=== PATIENT | male | born 1935 | race Hispanic/Latino ===

== ENCOUNTER 2017-06-15 22:46 | Observation (INO) | payer MEDICARE ==
--- NOTE | 2017-06-15 23:00 | ED PDOC ---
Arrival/HPI - General Time Seen by Provider: 06/15/17 22:50 Historian: Patient, Family - History of Present Illness Narrative History of Present Illness (Text): 06/15/17 23:00 Marciano Tellez is an 81 year old male, whose past medical history includes seasonal allergies, who presents to the emergency department for shortness of breath and cough. Patient states he has been experiencing intermittent cough and nasal congestion since allergy season began 3 weeks ago. Patient states he was seen by his PMD and prescribed Cingulair, Flonase, and Xyzal, which he has been taking with no significant improvement. Patient states tonight his cough and nasal congestion worsened, with associated shortness of breath and wheezing. Patient received nebulizer treatments and Solu-medrol en route with improvement. Patient notes he was working outside all day and wore a face mask. Patient denies any fever, chills, chest pain, abdominal pain, nausea, vomiting, diarrhea, urinary symptoms, back pain, neck pain, headache, dizziness, or any other complaints. Symptom Onset: Gradual Symptom Course: Unchanged Activities at Onset: Light Context: Home Past Medical History - Provider Review Nursing Documentation Reviewed: Yes - Psychiatric Hx Depression: No Hx Emotional Abuse: No Hx Physical Abuse: No Hx Substance Use: No - Suicidal Assessment Feels Threatened In Home Enviroment: No Family/Social History - Physician Review Nursing Documentation Reviewed: Yes Family/Social History: Unknown Family HX Hx Alcohol Use: No Hx Substance Use: No Hx Substance Use Treatment: No Allergies/Home Meds Allergies/Adverse Reactions: Allergies No Known Allergies Allergy (Verified 06/15/17 22:54) Home Medications: Home Meds Medication Instructions Recorded Confirmed Doxazosin Mesylate [Cardura] 2 mg PO DAILY 08/26/11 08/26/11 Rosuvastatin Calcium [Crestor] 10 mg PO DAILY 08/26/11 06/15/17 Latanoprost 0.005% Opht [Xalatan 1 drop OU DAILY 06/15/17 06/15/17 Opht] Nebivolol [Bystolic] 5 mg PO DAILY 06/15/17 06/15/17 Valsartan/Hydrochlorothiazide 1 tab PO DAILY 06/15/17 06/15/17 [Valsartan-Hctz 320-12.5 mg Tab] Review of Systems - Physician Review All systems were reviewed & negative as marked: Yes - Review of Systems Constitutional: Normal. absent: Fevers Eyes: Normal ENT: Sinus Congestion Respiratory: SOB, Cough, Wheezing Cardiovascular: Normal. absent: Chest Pain Gastrointestinal: Normal. absent: Abdominal Pain, Diarrhea, Nausea, Vomiting Genitourinary Male: Normal. absent: Dysuria, Frequency, Hematuria, Urinary Output Changes Musculoskeletal: Normal. absent: Back Pain, Neck Pain Skin: Normal. absent: Rash Neurological: Normal. absent: Headache, Dizziness Endocrine: Normal Hemo/Lymphatic: Normal Psychiatric: Normal Physical Exam Vital Signs Reviewed: Yes Vital Signs Temp Pulse Resp BP Pulse Ox 06/15/17 23:49 102 H 18 150/56 L 92 L 06/15/17 22:55 98.0 F 92 H 18 176/76 H 95 Temperature: Afebrile Blood Pressure: Hypertensive Pulse: Regular Respiratory Rate: Normal Appearance: Positive for: Well-Appearing, Non-Toxic, Comfortable Pain Distress: None Mental Status: Positive for: Alert and Oriented X 3 - Systems Exam Head: Present: Atraumatic, Normocephalic Pupils: Present: PERRL Extroacular Muscles: Present: EOMI Conjunctiva: Present: Normal Mouth: Present: Moist Mucous Membranes Neck: Present: Normal Range of Motion Respiratory/Chest: Present: Wheezes. No: Respiratory Distress, Accessory Muscle Use Cardiovascular: Present: Regular Rate and Rhythm, Normal S1, S2. No: Murmurs Abdomen: No: Tenderness, Distention, Peritoneal Signs Back: Present: Normal Inspection Upper Extremity: Present: Normal Inspection. No: Cyanosis, Edema Lower Extremity: Present: Normal Inspection. No: Edema Neurological: Present: GCS=15, CN II-XII Intact, Speech Normal Skin: Present: Warm, Dry, Normal Color. No: Rashes Psychiatric: Present: Alert, Oriented x 3, Normal Insight, Normal Concentration Medical Decision Making ED Course and Treatment: 06/15/17 23:00 Impression: 81 year old male complaining of cough, nasal congestion, shortness of breath, and wheezing. Differential Diagnosis included but are not limited to: asthmatic bronchitis Plan: -- EKG -- Chest X-Ray -- Labs, VBG, BNP, cardiac enzymes, blood cultures -- Duoneb -- Reassess and disposition Progress Notes: Reviewed EKG, NSR at [address] bpm[address] Non-specific ST/T wave changes. 06/16/17 00:05 Chest X-Ray reviewed, shows no acute processes. 06/16/17 00:[address] Santo, who is aware and agrees with plan. Accepts pt in to his service. Pt will go to Telemetry observation for asthmatic bronchitis. Requests Dr. James on consult. - Lab Interpretations Lab Results: 06/15/17 23:20 06/15/17 23:20 Lab Results 06/15/17 23:20: Sodium 147, Potassium 3.7, Chloride 106, Carbon Dioxide 29, Anion Gap 16, BUN 29 H, Creatinine 1.2, Est GFR ( Amer) > 60, Est GFR ( Non-Af Amer) 58, Random Glucose 131 H, Calcium 9.2, Magnesium 1.8, Total Bilirubin 0.6, AST 42, ALT 32, Alkaline Phosphatase 84, Lactate Dehydrogenase 614, Total Creatine Kinase 371 H, CK-MB (CK-2) 7.3 H, CK-MB (CK-2) % 2.0 L, Troponin I < 0.01, NT-Pro-B Natriuret Pep 164, Total Protein 7.1, Albumin 4.1, Globulin 3.0, Albumin/Globulin Ratio 1.4 06/15/17 23:20: WBC 6.8, RBC 3.90, Hgb 12.9 L, Hct 36.6 L, MCV 93.8, MCH 33.1, MCHC 35.2, RDW 14.5, Plt Count 129, MPV 9.3, Gran % 51.8, Lymph % (Auto) 36.4 H , Camas % (Auto) 2.9, Eos % (Auto) 8.8 H, Baso % (Auto) 0.1, Gran # 3.51, Lymph # (Auto) 2.5, Camas # (Auto) 0.2, Eos # (Auto) 0.6, Baso # (Auto) 0.01 I have reviewed the lab results: Yes - RAD Interpretation Radiology Orders: 06/15/17 23:05 CHEST PORTABLE [RAD] Stat Nurse Consultant: ED Physician - EKG Interpretation Interpreted by ED Physician: Yes Type: 12 lead EKG - Medication Orders Current Medication Orders: Acetaminophen (Tylenol 325mg Tab) 650 mg PO Q4H PRN PRN Reason: Pain, Mild (1-3) Albuterol/Ipratropium (Duoneb 3 Mg/0.5 Mg (3 Ml) Ud) 3 ml IH Q4H PRN PRN Reason: Wheezing Discontinued Medications Albuterol/Ipratropium (Duoneb 3 Mg/0.5 Mg (3 Ml) Ud) 3 ml IH Q15M JOSE ANTONIO Stop: 06/15/17 23:46 Last Admin: 06/15/17 23:36 Dose: 3 ml - Scribe Statement The provider has reviewed the documentation as recorded by the Xin Gordon Provider Scribe Attestation: All medical record entries made by the Xin were at my direction and personally dictated by me. I have reviewed the chart and agree that the record accurately reflects my personal performance of the history, physical exam, medical decision making, and the department course for this patient. I have also personally directed, reviewed, and agree with the discharge instructions and disposition. Disposition/Present on Arrival - Present on Arrival History of DVT/PE: No History of Uncontrolled Diabetes: No Urinary Catheter: No History Surgical Site Infection Following: None - Disposition
[2017-06-15] MEDS: Albuterol-Ipratrop 3 mg / 0.5 (3 ml) UD IH SCH ×3 (23:11→23:36)
[2017-06-15 23:57] LABS: BASO # 0.01 K/mm3 (0.0-2.0); BASO % 0.1 % (0.0-3.0); EOS # 0.6 (0.0-0.7); EOS % 8.8 % (1.5-5.0); GRAN # 3.51 (1.4-6.5); GRAN % 51.8 % (50.0-68.0); HEMOGLOBIN 12.9 g/dL (14.0-18.0); LYMPH # 2.5 (1.2-3.4); LYMPH % 36.4 % (22.0-35.0); MEAN CELL VOLUME 93.8 fl (80.0-105.0); MEAN CORPUSCULAR HEMOGLOBIN 33.1 pg (25.0-35.0); MEAN CORPUSCULAR HGB CONC 35.2 g/dl (31.0-37.0); MEAN PLATELET VOLUME 9.3 fl (7.0-11.0); MONO # 0.2 (0.1-0.6); MONO % 2.9 % (1.0-6.0); RBC 3.9 10^6/uL (3.5-6.1); RED CELL DISTRIBUTION WIDTH 14.5 % (11.5-14.5); WHITE BLOOD COUNT 6.8 10^3/ul (4.5-11.0)
[2017-06-16 00:07] LABS: ALB/GLOB RATIO 1.4 (1.1-1.8); ALBUMIN 4.1 g/dL (3.0-4.8); ALT/SGPT 32 U/L (7-56); AST/SGOT 42 U/L (17-59); BLOOD UREA NITROGEN 29 mg/dL (7-21); CALCIUM 9.2 mg/dL (8.4-10.5); GFR AFRICAN-AMERICAN > 60; GFR NON-AFRICAN AMERICAN 58
[2017-06-16 00:17] LABS: B-TYPE NATRIURETIC PEPTIDE 164 pg/mL (0-450); TROPONIN I < 0.01 ng/mL
[2017-06-16 00:40] LABS: CK-MB 7.3 ng/mL (0.0-3.6)
[2017-06-16] MEDS ORDERED: Albuterol-Ipratrop 3 mg / 0.5 (3 ml) UD IH PRN ×2 (01:03→06:00)
[2017-06-16 06:27] VITALS: BP 117/60; RESP 18; TEMP 97.8; O2SAT 97
[2017-06-16 07:51] VITALS: PULSE 79
[2017-06-16] MEDS ORDERED: Albuterol-Ipratrop 3 mg / 0.5 (3 ml) UD IH SCH (08:00)
--- NOTE | 2017-06-16 08:12 | RAD ---
HISTORY: Shortness of breath COMPARISON: No prior. FINDINGS: LUNGS: No active pulmonary disease. PLEURA: No significant pleural effusion identified, no pneumothorax apparent. CARDIOVASCULAR: No radiographic findings to suggest acute or significant cardiovascular disease. OSSEOUS STRUCTURES: No significant abnormalities. VISUALIZED UPPER ABDOMEN: Normal. OTHER FINDINGS: None. IMPRESSION: No active disease.
--- NOTE | 2017-06-16 09:04 | CON ---
DATE: 06/16/2017 PULMONARY CONSULTATION REASON FOR CONSULTATION: Bronchitis. REFERRING PHYSICIAN: Mook Santo MD. HISTORY OF PRESENT ILLNESS: The patient is an 81-year-old male, with past medical history significant for recurrent bronchitis, seasonal allergies, who presents to [facility] with a 1-week history of worsening shortness of breath at rest, dyspnea on exertion, cough, and minimal sputum production. The patient does state that his pulmonary symptoms were preceded by nasal congestion and a runny nose. There is no history of chest pain, coughing up of blood, or chest pain - made worse with deep respirations. There is no history of temperatures, chills, or infectious exposure. There is no history of night sweats, weight loss, or appetite change prior to the above events. No history of leg or calf pains. No history of syncope or diaphoresis. No history of recent travel or trauma. REVIEW OF SYSTEMS: No history of nausea, vomiting, or diarrhea. No acute urinary symptoms. No new neurologic or musculoskeletal complaints. Rest of the review of systems is negative. ALLERGIES: NO KNOWN ALLERGIES. SOCIAL HISTORY: Positive for former tobacco usage. No alcohol. FAMILY HISTORY: No inheritable diseases. HOME MEDICATIONS: Include Bystolic, valsartan, Crestor, and Cardura. PHYSICAL EXAMINATION: GENERAL: The patient appears comfortable this morning. He is not short of breath at rest. He is not using accessory muscles for breathing. VITAL SIGNS: Temperature is 97.8, pulse 93, respirations 18, blood pressure 117/60. Oxygen saturation on nasal cannula is 97%. HEENT: Normocephalic, atraumatic. No JVD. CARDIOVASCULAR: Systolic ejection murmur at the lower left sternal border. No S3 gallop. LUNGS: Decreased breath sounds at the bases. Minimal rhonchi. A few wheezes are also appreciated. EXTREMITIES: No clubbing, cyanosis, or edema. Calves are nontender to palpation. GASTROINTESTINAL: Abdomen is soft, nontender, and nondistended. Bowel sounds are positive. SKIN: No acute rash. NEUROLOGIC: Limited at the present time. PERTINENT LABORATORY DATA: Chest x-ray was done late last night and reviewed. There are chronic-appearing changes of left hemidiaphragm. NO significant infiltrates. Official results-pending. CBC: White count 6.8K, hemoglobin 12.9, hematocrit 36.6, platelets of 129,000. Complete metabolic profile: BUN 29, glucose 131, creatine kinase 371. Rest of the metabolic profile is within normal limits. IMPRESSION: 1. Recurrent bronchitis. 2. Acute sinusitis. 3. Seasonal allergies. 4. Mild anemia. PLAN: I did discuss the case with the night nurse at length. I have also discussed the case with the patient at length, and reviewed the chart at length. The patient presents to [facility] with a 1-week history of worsening pulmonary symptoms. Again, as above, the pulmonary symptoms were preceded by nasal congestion and a runny nose. I did review the chest x-ray as above. There are chronic-appearing changes of the left hemidiaphragm. Official results are pending. . I do not appreciate any new/significant infiltrates. In addition, there is no history of temperatures. There is no leukocytosis. On physical exam, the patient is in mild bronchospasm. There is no significant alveolar-arterial gradient. I will continue with the current nebulizer treatments and add a low dose of oral prednisone. I will also continue with the Flonase - which the patient was on at home. Lastly, due to the above symptoms and chronicity, I will start the patient on oral antibiotic therapy. The patient does state to feeling much ,much better this morning, and is clinically improved. Additional pulmonary intervention will be based on the clinical status of the patient. I will discuss the above with Dr. Santo later this morning. Thank you very much for this pulmonary consultation. Arnol James MD MTDLeigh
[2017-06-16] MEDS ORDERED: Fluticasone Nasal 50 mcg/Spray NS SCH (10:00)
[2017-06-16] MEDS ORDERED: levoFLOXacin 500 MG TAB PO SCH (10:00)
--- NOTE | 2017-06-16 10:06 | CP.PCM.HP ---
History of Present Illness - History of Present Illness History of Present Illness: H&P for Emilia Cunningham PGY2 This is an 81yo male with past medical history of seasonal allergies, bronchitis , HTN and dyslipidemia who came into ED for cough x 3 weeks. Patient reports that he has been having a cough and congestion that has been getting worse over the past 10 days. He says this happens every allergy season, but has never been hospitalized or intubated for these symptoms. His cough is mostly non-productive , but can be productive with clear mucus. He feels as though he can't breath out of his nose due to the congestion, despite using Flonase and allergy medication at home. Patient was working outside in the [employer] when his cough became very bad and decided to come into the ED. He denies recent travel, sick contacts, fever/chills, chest pain, or shortness of breath. He is able to walk long distances without being short of breath and he does not have a rescue inhaler at home. Past medical history: prostate cancer (s/p resection), seasonal allergies, bronchitis, HTN and dyslipidemia Past surgical history: Cholecystectomy, Partial prostatectomy Home meds: All per MAR Allergies: NKDA Social history: Aries EtOH, drug or tobacco use. Patient is independent with ADLs Present on Admission - Present on Admission Any Indicators Present on Admission: No Review of Systems - Review of Systems All systems: reviewed and no additional remarkable complaints except Review of Systems: 12 point ROS reviewed as per HPI. Past Patient History - Past Social History Smoking Status: Never Smoked - CARDIAC Hx Hypertension: Yes - PULMONARY Hx Respiratory Disorders: No - NEUROLOGICAL Hx Neurological Disorder: No - HEENT Hx HEENT Problems: Yes (glasses) - RENAL Hx Chronic Kidney Disease: No - ENDOCRINE/METABOLIC Hx Endocrine Disorders: No - HEMATOLOGICAL/ONCOLOGICAL Hx Blood Disorders: No - INTEGUMENTARY Hx Dermatological Problems: No - MUSCULOSKELETAL/RHEUMATOLOGICAL Hx Falls: No - GASTROINTESTINAL Hx Gastrointestinal Disorders: Yes Hx Gall Bladder Disease: Yes - GENITOURINARY/GYNECOLOGICAL Hx Prostate Problems: Yes (Prostate CA with resection and radiation) - PSYCHIATRIC Hx Depression: No Hx Emotional Abuse: No Hx Physical Abuse: No Hx Substance Use: No - SURGICAL HISTORY Hx Surgeries: Yes Hx Cholecystectomy: Yes - ANESTHESIA Hx Anesthesia: Yes Meds Home Medications: Home Medication List Medication Instructions Recorded Confirmed Type Albuterol/Ipratropium [Combivent 90 mcg IH Q6 #1 inhaler 06/16/17 Rx Respimat] Prednisone [Deltasone] 20 mg PO DAILY 3 Days tablet 06/16/17 Rx Allergies/Adverse Reactions: Allergies Allergy/AdvReac Type Severity Reaction Status Date / Time No Known Allergies Allergy Verified 06/15/17 22:54 Physical Exam - Constitutional Appears: No Acute Distress - Head Exam Head Exam: ATRAUMATIC, NORMAL INSPECTION, NORMOCEPHALIC - Eye Exam Eye Exam: Normal appearance, PERRL Pupil Exam: NORMAL ACCOMODATION, PERRL - ENT Exam ENT Exam: Mucous Membranes Moist - Respiratory Exam Respiratory Exam: Clear to Auscultation Bilateral, NORMAL BREATHING PATTERN. absent: Rales, Rhonchi, Wheezes - Cardiovascular Exam Cardiovascular Exam: REGULAR RHYTHM, +S1, +S2. absent: Gallop, Rubs, Systolic Murmur - GI/Abdominal Exam GI & Abdominal Exam: Normal Bowel Sounds, Soft. absent: Mass, Rebound, Rigid, Tenderness - Extremities Exam Extremities exam: Positive for: normal inspection. Negative for: calf tenderness, pedal edema - Neurological Exam Neurological exam: Alert, CN II-XII Intact, Oriented x3 - Psychiatric Exam Psychiatric exam: Normal Affect, Normal Mood - Skin Skin Exam: Dry, Intact, Warm Results - Vital Signs Recent Vital Signs: Last Vital Signs Temp 97.8 F 06/16/17 06:00 Pulse 79 06/16/17 07:39 Resp 18 06/16/17 06:00 BP 117/60 06/16/17 06:00 Pulse Ox 97 06/16/17 06:00 - Labs Result Diagrams: 06/15/17 23:20 06/15/17 23:20 Assessment & Plan - Assessment and Plan (Free Text) Assessment: This is an 81yo male with past medical history of seasonal allergies, bronchitis , HTN and dyslipidemia who was admitted for bronchitis most likely secondary to seasonal allergies. Plan: 1. Bronchitis - CXR showed no evidence of pneumonia - Afebrile, no leukocytosis - Pulm consulted- recs appreciated - Continue steroids as well as nebulizer - Flonase 2. Hx of HTN - Continue home meds: Bystolic, Valsartan and HCTZ 3. Hx of Dyslipidemia - Continue Crestor Dispo: Patient has been evaluated by myself and Dr. Santo as well as Dr. James. Patient is medically stable at this time and did not have any audible wheezing on exam and did well without any supplemental oxygen. Patient will be discharged home today with Albuterol inhaler as needed as well as Prednisone 20mg for 3 days. He can continue his home medication and follow up with Dr. Santo as outpatient. Case seen, discussed and reviewed with Dr. Santo. Emilia Castro PGY2 - Date & Time Date: 06/16/17 Time: 10:21
--- NOTE | 2017-06-16 13:58 | CARD ---
APPROVED REPORT EKG Measurement Heart [id number] [id number] [id number] <Conclusion> Normal sinus rhythm STTW changes c/w ischemia
[2017-06-16] MEDS ORDERED: Latanoprost 2.5 ml Opht Soln OU SCH (22:00)
== END 2017-06-16 11:27 | disposition home or self-care (01) ==
LOC: ED 22:46 → ERH 06-16 01:02 → 2RNO 06-16 02:31
PROVIDERS: ADMIT Internal Medicine Nephrology; ATTEND Internal Medicine Nephrology
DX: J40 Bronchitis, not specified as acute or chronic (principal); J30.2 Other seasonal allergic rhinitis; J01.90 Acute sinusitis, unspecified; I10 Essential (primary) hypertension; E78.5 Hyperlipidemia, unspecified; Z85.46 Personal history of malignant neoplasm of prostate; D64.9 Anemia, unspecified; Z87.891 Personal history of nicotine dependence
CPT/HCPCS: 71045; 80053; 82550; 82553; 83615; 83735; 83880; 84484; 85025; 87040; 93005; 94640; 94760; 99285; G0378